=== PATIENT | female | born 1985 | race Two or more races ===

== ENCOUNTER 2023-06-26 09:40 | Day surgery (SDC) | payer OTHER, SELFPAY ==
[2023-06-26] VITALS (21 sets, daily range): BP systolic 95–131; BP diastolic 57–94; PULSE 70–114; RESP 10–19; TEMP 36.3–36.4; O2SAT 93–100
--- NOTE | ~2023-06-26 | CT_ITS ---
EXAMINATION: CT abdomen pelvis w con DATE: 06/26/2023 12:00 INDICATION: Leukocytosis and upper abdominal pain TECHNIQUE: Computed tomography (CT) of the abdomen and pelvis was performed with 100 mL Omnipaque-350 intravenous contrast. Automated exposure control and iterative reconstruction technique were employe d. The dose-length product was 259.89 mGy-cm. COMPARISON: None FINDINGS: Minimal dependent atelectasis in the bilateral lower lobes. Heart size is normal. No pericardial or p leural effusion. Mild central intrahepatic biliary ductal dilation versus mild periportal edema. Gall bladder is normal. No evident dilation of the common bile duct. Spleen, pancreas, bilateral adrenal g lands and kidneys are normal. There is prominent edematous wall thickening of the appendix and focall y at the cecal wall the appendiceal orifice. Small amount of stranding surrounding the distal appendi x. Findings consistent with acute appendicitis. Remainder of the bowels are normal with no obstructio n. Bladder, uterus and right adnexa are normal. 2.1 cm peripherally enhancing likely corpus luteum cy st at the left adnexa. There is a small amount of low-density ascites in the anterior right hemipelvi s caudal to the tip of the cecum. There is a 4.0 x 3.5 cm masslike region of intermediate attenuation at the left side of the cul-de-sac, unclear whether solid or complex cystic. No evident surrounding inflammatory strain or peripheral enhancing wall to suggest abscess. No free intraperitoneal gas. No pathologically enlarged abdominal or pelvic lymphadenopathy. 1 cm lytic lesion in the anterior L1 silvino tebral body which demonstrates central fluid attenuation favoring a benign etiology such as hemangiom a. IMPRESSION: 1. Acute appendicitis with small amount of simple appearing likely reactive ascites in the right morales pelvis. 2. 4.0 x 3.5 cm mass lesion at the left side of the cul-de-sac with soft tissue density without evide nt peripherally enhancing wall were surrounding inflammatory stranding to suggest abscess. Differenti al would include solid mass at the ligament or more likely benign such as a uterine fibroid or comple x cystic lesion such as endometrioma or hemorrhagic cyst. Would consider pelvic ultrasound for furthe r evaluation. 3. Indeterminate 1 cm lytic lesion in the L1 vertebral body which is of fluid attenuation favoring ot her cystic bone lesion or hemangioma. Malignancy would be unlikely given appearance, patient age and in the absence of a known primary malignancy. If clinically indicated could consider pre and postcont rast MRI for more definitive determination. Reviewed, dictated and finalized at location A. IMPRESSION: 1. Acute appendicitis with small amount of simple appearing likely reactive asc ites in the right hemipelvis. 2. 4.0 x 3.5 cm mass lesion at the left side of the cul-de-sac with soft tissue density without evident peripherally enhancing wall were surrounding inflammat ory stranding to suggest abscess. Differential would include solid mass at the ligament or more likely benign such as a uterine fibroid or complex cystic lesi on such as endometrioma or hemorrhagic cyst. Would consider pelvic ultrasound f or further evaluation. 3. Indeterminate 1 cm lytic lesion in the L1 vertebral body which is of fluid a ttenuation favoring other cystic bone lesion or hemangioma. Malignancy would be unlikely given appearance, patient age and in the absence of a known primary m alignancy. If clinically indicated could consider pre and postcontrast MRI for more definitive determination.
--- NOTE | 2023-06-26 09:51 | ED.ABDPAIN ---
HPI - Abdominal Pain General Chief Complaint: Abdominal Pain <Phoenix Rocha APRN - Last Filed: 06/26/23 13:16> Stated Complaint: abd pain <Phoenix Rocha APRN - Last Filed: 06/26/23 13:16> Time Seen by Provider: 06/26/23 09:44 <Phoenix Rocha APRN - Last Filed: 06/26/23 13:16> Source: patient <Phoenix Rocha APRN - Last Filed: 06/26/23 13:16> Mode of arrival: ambulatory <Phoenix Rocha APRN - Last Filed: 06/26/23 13:16> Limitations: no limitations <Phoenix Rocha APRN - Last Filed: 06/26/23 13:16> History of Present Illness HPI narrative: Chery is a 37-year-old female patient presenting to the clinic today with complaints of mid abdomen/epigastric abdominal pain that has been going on since midnight. She reports she is having some nausea denies any vomiting or urinary symptoms. Last bowel movement was this morning and was normal for her. Denies any blood in her stool. Last menstrual period was 3 weeks ago. She denies any chance of . Does have history of endometriosis. Rates her pain 10/10 and states that the burning pain. Has taken omeprazole and simethicone this morning and that did not relieve her symptoms. Has taken these medications in the past with and she had heartburn it helped. Denies fever or chills. Last time she ate was before midnight. Last time she had anything to drink was water 8:00 a.m. this morning. <Phoenix Rocha APRN - Last Filed: 06/26/23 13:16> Related Data Home Medications: Home Medications Medication Instructions Recorded Confirmed No Home Medications 06/26/23 06/26/23 <Phoenix Rocha APRN - Last Filed: 06/26/23 13:16> Allergies/Adverse Reactions: Allergies Allergy/AdvReac Type Severity Reaction Status Date / Time No Known Allergies Allergy Verified 06/26/23 16:12 <Phoenix Rocha APRN - Last Filed: 06/26/23 13:16> Review of Systems Review of Systems: Pertinent positives per HPI. Patient denies any fever, chills, rash, headache, visual changes, dizziness, cough, runny nose, sore throat, shortness of breath, chest pain, palpitations, vomiting, diarrhea, constipation, or any urinary issues. 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 Mother No problems noted. <Phoenix Rocha SHOTG[employer] SHELL LOADING MACHINE OPERATOR - Last Filed: 06/26/23 13:16> Social History Social History: Social History Smoking status: Never smoker Alcohol intake: never <Phoenix Rocha APRN - Last Filed: 06/26/23 13:16> Comments At the time of my signature, I reviewed and agree with the nursing past medical, surgical, social, and family history. There is no relevant family history pertinent to the patient complaint. <Phoenix Rocha SHOTG[employer] SHELL LOADING MACHINE OPERATOR - Last Filed: 06/26/23 13:16> Exam Narrative: General: Well-developed, well nourished, in no apparent distress. Head: Normocephalic, atraumatic. Cardio: Regular rate and rhythm, s1 and s2 normal, no murmur appreciated. Resp: Clear to auscultation bilaterally, no rhonchi, rales, wheezing or rubs. Abdomen: Soft, pliable, bowel sounds present in all quadrants, tender to palpation over the right lower/upper abdomen-specifically over the epigastric area, no organomegly, no CVAT tenderness. <Phoenix Rocha, LALIT - Last Filed: 06/26/23 13:16
[2023-06-26] MEDS: BELLADONNA ALK/PHENOB ELIX 10 ML, MAG HYDROX/ALUMINUM HYD/SIMETH 30 ML, LIDOCAINE HCL 2... PO (09:59)
[2023-06-26] MEDS: SODIUM CHLORIDE 0.9% IV 1,000 ML 999 ML IV CONT ×2 (10:03→11:19)
[2023-06-26] MEDS: ONDANSETRON INJ 4 MG/2 ML VIAL IV PUSH ×2 (10:03→11:19)
[2023-06-26 10:27] LABS: Alanine Aminotransferase 26 U/L (6-35); Albumin Level 4.5 g/dL (3.5-5.1); Alkaline Phosphatase 52 U/L (38-126); Anion Gap 8 mmol/L (4-12); Aspartate Amino Transferase 29 U/L (14-36); Bilirubin,Total 0.9 mg/dL (0.2-1.3); Blood Urea Nitrogen 13 mg/dL (7-17); Calcium 9.4 mg/dL (8.4-10.2); Carbon Dioxide 21 mmol/L (22-30); Chloride 107 mmol/L (98-107); Estimated CRCL calculation 124 ml/min; Estimated Glomerular Filt Rate > 60; Glucose 103 mg/dL (65-110); Lipase 76 U/L (23-300); Potassium 4.1 mmol/L (3.4-5.0); Sodium 136 mmol/L (137-145)
[2023-06-26 10:39] LABS: Basophils Absolute Auto 0.1 K/mm3 (0.0-0.1); Basophils Percent Auto 0.5 % (0.2-1.2); Eosinophils Percent Auto 0.1 % (0-4.4); Hematocrit 44.4 % (37.0-47.0); Immature Granulocyte Absolute 0.04 K/mm3 (0.00-0.031); Immature Granulocyte Percent A 0.3 % (0-0.5); Lymphocytes Absolute Auto 0.96 K/mm3 (0.9-3.2); Lymphocytes Percent Auto 7.6 % (18.3-44.2); Mean Corpuscular HGB Conc 31.5 g/dl (32-36); Mean Corpuscular Hemoglobin 27.1 pg (26-34); Mean Platelet Volume 11.1 fl (7.4-10.4); Monocytes Absolute Auto 0.5 K/mm3 (0.1-0.6); Monocytes Percent Auto 3.7 % (2.6-8.5); Neutrophils Absolute Auto 11.1 K/mm3 (1.3-6.7); Neutrophils Percent Auto 87.8 % (45.5-73.1); Platelet Count Result 267 k/mm3 (150-375); Red Blood Count 5.16 M/mm3 (4.2-5.4); Red Cell Distribution Width 12.8 % (11.5-14.5); White Blood Count 12.6 K/mm3 (4.5-10.0)
[2023-06-26 10:43] LABS: Appearance Urine Clear (Clear); Bilirubin Urine Negative (Negative); Blood Urine Negative (Negative); Color Urine Yellow (Yellow); Glucose Urine UA Negative (Negative); Ketones Urine 2+ mg/dL (Negative); Leukocyte Esterase Ur Negative LEU/UL (Negative); Nitrate Urine Negative (Negative); Protein Urine Negative (Negative); Specific Grav Ur 1.016 (1.001-1.035); Urobilinogen Urine 0.2 mg/dL (<2.0); pH Urine 6.5 (5.0-9.0)
[2023-06-26 10:45] LABS: Add Urine Microscopic? YES
[2023-06-26] MEDS: HYDROmorphone HCL INJ (*CRX) 1 MG/ML SYR 0.5 MG IV PUSH ×2 (11:19→19:22)
[2023-06-26] MEDS: PANTOPRAZOLE SODIUM IV 40 MG VIAL IV PUSH (11:19)
[2023-06-26] MEDS: PIPERACILLN/TAZ 3.375GM/NS50ML 3.375 GM/50 ML BAG IVPB (12:58)
--- NOTE | 2023-06-26 16:27 | PM.IMHP ---
H&P: HPI History of Present Illness Date/Time: 06/26/23 16:27 Chief Complaint: RLQ pain Review of Systems Review of Systems: All systems reviewed & are unremarkable except as noted in HPI and below Eyes: Eyes: Denies change in vision ENT: Denies hearing loss, Denies neck pain and Denies sore throat Cardiovascular: Cardiovascular: Denies chest pain and Denies dyspnea Respiratory: Respiratory: Denies cough, Denies dyspnea and Denies wheezing Gastrointestinal: Gastrointestinal: Reports as per HPI Genitourinary: Genitourinary: Denies hematuria and Denies dysuria Musculoskeletal: Musculoskeletal: Denies arthralgias, Denies joint swelling and Denies neck pain Allergic/Immunologic: Allergic/Immunologic: Denies wheezing [facility] Past Medical History Medical History (Updated 06/26/23 @ 16:29 by Mike Garcia DO) Endometriosis Surgical History Surgical History (Updated 06/26/23 @ 16:29 by Mike Garcia DO) No history of previous surgery Family History Family History (Updated 06/26/23 @ 16:30 by Mike Garcia DO) Father No problems noted. Mother No problems noted. Social History Social History (Updated 06/26/23 @ 16:32 by Mike Garica DO) Smoking status: Never smoker Alcohol intake: never Meds Home Medications and Allergies Home Medications Medication Instructions Recorded Confirmed Type No Home Medications 06/26/23 06/26/23 History Allergies Allergy/AdvReac Type Severity Reaction Status Date / Time No Known Allergies Allergy Verified 06/26/23 16:12 Vital Signs Vital Signs - 24 hr 06/26/23 09:52 06/26/23 16:06 06/26/23 09:51 Temperature 36.4 C 36.3 C L Pulse Rate 83 88 Respiratory Rate 19 14 Blood Pressure 113/70 95/57 L 118/94 H Pulse Oximetry 100 100 100 Oxygen Delivery Room Air 06/26/23 10:00 06/26/23 10:48 06/26/23 11:09 Temperature Pulse Rate Respiratory Rate Blood Pressure 112/75 Pulse Oximetry 100 99 100 Oxygen Delivery 06/26/23 11:15 06/26/23 11:30 06/26/23 11:45 Temperature Pulse Rate Respiratory Rate Blood Pressure Pulse Oximetry 100 100 100 Oxygen Delivery 06/26/23 12:00 06/26/23 12:15 06/26/23 12:30 Temperature Pulse Rate Respiratory Rate Blood Pressure Pulse Oximetry 100 100 100 Oxygen Delivery 06/26/23 15:23 Temperature Pulse Rate Respiratory Rate Blood Pressure Pulse Oximetry 99 Oxygen Delivery Exam Const: General: alert; No acute distress Orientation/consciousness: patient oriented x3 Limitations: no limitations HENMT: Head: normocephalic and atraumatic Ears: hearing grossly normal bilaterally Face/Nose/Sinus: Normal external nose present and Normal nares present Mouth: Yes Normal oral and palatal mucosa present and Yes moist mucous membranes Eyes: General: appearance normal, both eyes and all related structures Conjunctivae: conjunctivae normal Sclera: sclerae normal Pupils: Equal, round and reactive pupils present EOM: EOMs intact bilaterally Neck: Neck: normal visual inspection, full ROM, no lymphadenopathy, supple and no JVD Lymphatic: no lymphadenopathy noted Chest: Chest palpation & inspection: normal inspection of the chest Resp: Effort & Inspection: normal respiratory effort and able to speak in complete sentences Auscultation: clear to auscultation bilaterally Percussion: percussion normal Cardio: Jugular venous distension: no JVD Rate: regular rate Rhythm: regular rhythm Heart sounds: S1 normal heart sound present and S2 normal heart sound present Peripheral pulses: Peripheral pulses 2+ throughout GI: Inspection: normal to inspection GI Palp: Yes Soft to palpation, Yes Tenderness to palpation present (GI) (RLQ pain), No Guarding due to palpation present (GI), No Hernia present and No Rebound tenderness present Percussion: Yes normal to percussion Auscultation: normal bowel sounds : General: Yes
--- NOTE | 2023-06-26 16:43 | WPDHPUPDATE1 ---
History and Physical Update Update Date/Time: 06/26/23 16:43 History and Physical has been reviewed, including an updated exam of the patient. There are NO changes in the patient's condition. Risks, benefits, and alternatives have been discussed and questions answered. Patient agrees to proceed with procedure.
--- NOTE | 2023-06-26 17:21 | WPDANESEPPF ---
Anes - Initial Pre Proc Eval Procedure: Operation Date: 06/26/23 15:30 Proposed Procedures p Laparoscopic Appendectomy, Possible Open - Mike Garcia DO Date/Time: 06/26/23 17:21 Surgeon: Mike Garcia DO Pre Op Diagnosis: abd pain Patient Data Age: 37 Gender: F Height: 1.7 m Weight: 60 kg Last Vital Signs Temp 97.3 F L 06/26/23 16:06 Pulse 88 06/26/23 16:06 Resp 14 06/26/23 16:06 BP 95/57 L 06/26/23 16:06 Pulse Ox 100 06/26/23 16:06 O2 Del Method Room Air 06/26/23 16:06 Allergies Allergy/AdvReac Type Severity Reaction Status Date / Time No Known Allergies Allergy Verified 06/26/23 16:12 Home Medications Medication Instructions Recorded Confirmed Type No Home Medications 06/26/23 06/26/23 History Laboratory Tests 06/26/23 06/26/23 10:09 10:36 WBC 12.6 H K/mm3 (4.5-10.0) RBC 5.16 M/mm3 (4.2-5.4) Hgb 14.0 g/dL (12.0-15.0) Hct 44.4 % (37.0-47.0) MCV 86.0 fl (80-100) MCH 27.1 pg (26-34) MCHC 31.5 L g/dl (32-36) RDW 12.8 % (11.5-14.5) Plt Count 267 k/mm3 (150-375) MPV 11.1 H fl (7.4-10.4) Immature Gran % (Auto) 0.3 % (0-0.5) Neut % (Auto) 87.8 H % (45.5-73.1) Lymph % (Auto) 7.6 L % (18.3-44.2) [place] % (Auto) 3.7 % (2.6-8.5) Eos % (Auto) 0.1 % (0-4.4) Baso % (Auto) 0.5 % (0.2-1.2) Lymph # (Auto) 0.96 K/mm3 (0.9-3.2) [place] # (Auto) 0.5 K/mm3 (0.1-0.6) Eos # (Auto) 0.0 K/mm3 (0-0.3) Baso # (Auto) 0.1 K/mm3 (0.0-0.1) Abs Immat Gran (auto) 0.04 H K/mm3 (0.00-0.031) Absolute Neuts (auto) 11.1 H K/mm3 (1.3-6.7) Absolute Nucleated RBC 0.000 K/mm3 (0.0-0.012) Nucleated RBC % 0.0 % (0.0-0.2) Sodium 136 L mmol/L (137-145) Potassium 4.1 mmol/L (3.4-5.0) Chloride 107 mmol/L (98-107) Carbon Dioxide 21 L mmol/L (22-30) Anion Gap 8 mmol/L (4-12) BUN 13 mg/dL (7-17) Creatinine 0.50 L mg/dL (0.7-1.0) Estim Creat Clear Calc 124 ml/min Estimated GFR > 60 (59 - ) Glucose 103 mg/dL (65-110) Calcium 9.4 mg/dL (8.4-10.2) Total Bilirubin 0.9 mg/dL (0.2-1.3) AST 29 U/L (14-36) ALT 26 U/L (6-35) Alkaline Phosphatase 52 U/L (38-126) Total Protein 8.0 g/dL (6.3-8.2) Albumin 4.5 g/dL (3.5-5.1) Lipase 76 U/L (23-300) Urine Color Yellow (Yellow) Urine Appearance Clear (Clear) Urine pH 6.5 (5.0-9.0) Ur Specific [place] 1.016 (1.001-1.035) Urine Protein Negative mg/dL (Negative) Urine Glucose (UA) Negative mg/dL (Negative) Urine Ketones 2+ H mg/dL (Negative) Ur Blood (Man) Negative (Negative) Urine Nitrate Negative (Negative) Urine Bilirubin Negative (Negative) Urine Urobilinogen 0.2 mg/dL (<2.0) Leukocyte Esterase Rfl Negative MILIND/UL (Negative) Patient hx anesthesia problems: none Family hx anesthesia problems: none Results Review: All pre-operative results and documents have been reviewed as part of the pre-operative evaluation. [facility] Past Medical History Medical History Endometriosis Surgical History Surgical History No history of previous surgery Family History Family History Father No problems noted. Mother No problems noted. Social History Social History Smoking status: Never smoker Alcohol intake: never Anes - Eval Final PreProcedure Day of Procedure 06/26/23 17:21 Patient weight: normal Heart: regular rate and rhyth
[2023-06-26] MEDS: BUPIVACAINE/EPINEPHRINE 0.5% 50 ML VIAL 30 ML INFILTRATE (18:08)
--- NOTE | 2023-06-26 18:35 | W.PM.PROC2 ---
Procedure Note - Detailed Date of Procedure 06/26/23 Pre-op Diagnosis Acute appendicitis Post-op Diagnosis Same (Acute appendicitis, endometriosis) Procedure Performed Laparoscopic appendectomy Surgeon Mike Garcia, DO Anesthesia General and Local (0.5% bupivacaine with epinephrine) Indications This is a 37-year-old woman who presented to the emergency department with right lower quadrant pain. She was noted to have a slightly elevated white blood count and CT showed evidence of acute uncomplicated appendicitis. Discussions were made patient about treatment options and decision was made to proceed with laparoscopic appendectomy, possible open. Findings Laparoscopic appendectomy was performed. The appendix appeared to be in a slightly retrocecal location and was dilated and inflamed. The base of the appendix appeared healthy and viable. The appendix was removed and sent to the lab for pathology. There was some slightly pink discolored tissue on the cecum suggestive of possible endometriosis as well as a cyst in the pelvis and signs of endometrial implants in the pelvis. No other intra-abdominal abnormalities were noted. Description of Procedure Procedure as well as risks, benefits, and alternatives were explained to the patient. The patient agreed to proceed. Written consent was obtained and placed in chart prior to procedure. The patient was brought back to surgical suite. She was placed supine on operating table. Time-out was done to confirm the patient and procedure. The patient was then intubated by the Anesthesia Department. Her abdomen was prepped and draped in sterile fashion using chlorhexidine prep. A 12 mm incision was made at the inferior portion of the umbilicus. Blunt dissection was carried out down to the linea alba. The linea alba was then incised using a 15 blade scalpel. Then bluntly entered into the peritoneal cavity. A 12 mm trocar was then inserted, and carbon dioxide insufflation was used to create a pneumoperitoneum. The camera was inserted and the abdomen was inspected. No immediate abnormalities were identified. The patient was then placed in slight Trendelenburg position and rotated to the left. A 5 mm incision was made in the suprapubic region in midline and a 5 mm trocar was inserted under direct visualization. A 5 mm incision was made in the left lower quadrant and a 5 mm trocar was inserted under direct visualization. The right lower quadrant was carefully inspected. The cecum was identified and then this was traced back to the appendix. The appendix was identified and grasped at the mesoappendix and lifted anteriorly. Careful blunt dissection was carried out at the base of the appendix through the mesoappendix using a [place] grasper. An Endo-GISELLE 45 mm blue load stapler was then advanced across the base of the appendix and clamped and fired. A white reload was then clamped across the mesoappendix and fired. This freed up our appendix completely. It was then placed in an EndoCatch bag and removed through the umbilical port. The staple lines were then inspected. Hemostasis appeared adequate and the staple lines appeared secure. The area was then irrigated with sterile saline. The pelvis was then carefully inspected and irrigated with sterile saline as well and the remainder of the abdomen was carefully inspected. The patient was then flattened out in bed. One final inspection was made around the abdominal cavity and no other abnormalities were seen. The ports were then removed under direct visualization. The camera was removed and the pneumoperitoneum was released. The fascia of the umbilical incision was reapproximated using an 0 Vicryl [id number] suture. 0.5% bupivacaine with epinephrine was infiltrated locally around each of the incisions. The skin of the incisions was then approximated using 4-0 Monocryl subcuticular suture and Exofin glue was applied on top. The patient was then awakened from an
[2023-06-26] MEDS: LACTATED RINGERS 1,000 ML 30 ML IV CONT ×2 (18:39→18:52)
[2023-06-26] MEDS: fentaNYL CITRATE INJ (*CRX) 100 MCG/2 ML VIAL 25 MCG IV PUSH ×8 (18:42→19:12)
[2023-06-26] MEDS: oxyCODONE HCL (*CRX) 5 MG TAB IR PO (20:11)
--- NOTE | 2023-06-26 20:50 | SUR.PHASEII ---
Discussed medication orders with patient and boyfriend. They were focused on the narcotic pain medication. I helped them understand it was only if needed and that the instructions also included Acetaminophen 500mg alternating with Ibuprofen 600mg q6h for 2 days. I believe they understood.
== END 2023-06-26 20:52 | disposition home or self-care (01) ==
LOC: ANHED 13:11 → ANHSURGERY 15:16
PROVIDERS: Emergency Provider Nurse Practitioner Family; Referring Provider Emergency Medicine; Visit Provider Surgery
PROC: 0DTJ4ZZ Resection of Appendix, Percutaneous Endoscopic Approach (ICD-10-PCS; CPT 44970; principal; 2023-06-26 15:30)
DX: K35.80 Unspecified acute appendicitis (principal); R19.00 Intra-abdominal and pelvic swelling, mass and lump, unspecified site
CPT/HCPCS: 44970; 36415; 74177; 80053; 81001; 81025; 83690; 85025; 88304; 96361; 96365; 96375; 96376; 99285; A9270; C9113; J1170; J2250; J2405; J2543; J3010; J7030; J7120; Q9967